=== PATIENT | female | born 1955 | race American Indian/Alaskan Native ===

== ENCOUNTER 2016-10-19 10:26 | Outpatient (CLI) | payer OTHER ==
--- NOTE | 2016-10-19 14:11 | Mammography Report ---
BILATERAL DIGITAL SCREENING MAMMOGRAM with CAD: 10/19/16 10:26:00 CLINICAL: Routine screening. COMPARISON:None available. She does not remember where she last had a mammogram. FINDINGS: The breasts are heterogeneously dense, which may obscure small masses. No mass, architectural distortion or suspicious calcifications. IMPRESSION: No mammographic evidence of malignancy. BI-RADS CATEGORY: 1 - - Negative RECOMMENDATION: Routine mammographic screening in one year. COMMENT: Patient follow-up letters are generated by our [employer] application.
== END 2016-10-19 10:27 | disposition home or self-care (01) ==
LOC: SPVWC 10:26
PROVIDERS: ATTEND Family Medicine
DX: Z12.31 Encounter for screening mammogram for malignant neoplasm of breast (principal)
CPT/HCPCS: 77067; G0202

== ENCOUNTER 2017-03-20 12:30 | Inpatient (IN) | payer OTHER ==
--- NOTE | 2017-03-20 13:39 | Emergency Department Report ---
Chief Complaint: Dyspnea/Respdistress Stated Complaint: SHORTNESS OF BREATH Time Seen by Provider: 03/20/17 13:35 - HPI History of Present Illness: pt is a 61 y/o aaf pt for Pulmonology Dr. Daley with hx of sarcoidosis on flovent, and albuterol, rx home O2, not currently taking flovent or home O2 as "I haven't picked it up yet" pt presents for increased sob with dizziness unable to tolerate ADLS for past 3 days however she drove self to ed but does endorse having to stop 3 times between parking lot and registration to catch her breath. - Exam Vital Signs: Vital Signs 03/20/17 13:03 Temperature 98.3 F Pulse Rate 105 H Respiratory 22 Rate Blood Pressure 171/129 O2 Sat by Pulse 93 Oximetry MSE screening note: Focused history and physical exam performed. Due to findings the following was ordered: ED Disposition for MSE Condition: Stable
--- NOTE | 2017-03-20 14:45 | XRay Report ---
PA and lateral chest: SOB. The lungs are hyperinflated. There is a markedly thickened interstitial pulmonary pattern involving predominantly the upper lobes bilaterally. Several focal opacities are present just lateral to the right hilum. The heart is normal in size and there is no overt vascular congestion. No obvious hilar or mediastinal adenopathy identified. No prior study for comparison. Impression: Chronic lung disease with probable upper lobe fibrosis. Significant masses adjacent to the right hilum cannot be excluded. Recommendation: If prior exams are not available for comparison a CT scan is recommended.
--- NOTE | 2017-03-20 18:01 | Emergency Department Report ---
ED General Adult HPI - General Chief complaint: Dyspnea/Respdistress Stated complaint: SHORTNESS OF BREATH Time Seen by Provider: 03/20/17 13:35 Source: patient Mode of arrival: Ambulatory Limitations: No Limitations - History of Present Illness Initial comments: Pt is a 61 yo female here for bilateral lower ext edema. pt states she was sent by Dr Daley after a routine office visit today. Pt states that she was sent here for leg swelling. Pt states she just finished a 2 week prednisone taper. Pt states she has chronic sob and a history of sarcoid . Pt states she has not had chest pain . Pt denied any recent travel, prior history of PE/DVT. Review of the documents sent by Dr Zhang requested that the pt be admitted to the hospitalist service after having had a Ct Pe and doppler studies, along with some blood work. Severity scale (0 -10): 0 - Related Data Allergies Allergy/AdvReac Type Severity Reaction Status Date / Time No Known Allergies Allergy Unverified 03/20/17 13:03 ED Review of Systems ROS: Stated complaint: SHORTNESS OF BREATH Other details as noted in HPI ED Past Medical Hx - Past Medical History Previous Medical History?: Yes Hx Hypertension: Yes Additional medical history: Sarcadosis - Surgical History Past Surgical History?: Yes Additional Surgical History: C section - Social History Smoking Status: Never Smoker Substance Use Type: None ED Physical Exam - General Limitations: No Limitations General appearance: alert, in no apparent distress - Eye Eye exam: Present: normal appearance, PERRL, EOMI - ENT ENT exam: Present: mucous membranes moist - Neck Neck exam: Present: normal inspection - Cardiovascular Cardiovascular Exam: Present: regular rate - GI/Abdominal GI/Abdominal exam: Present: soft. Absent: distended, tenderness, guarding - Neurological Exam Neurological exam: Present: alert, oriented X3 - Psychiatric Psychiatric exam: Present: normal affect ED Course Vital Signs 03/20/17 03/20/17 03/20/17 13:03 17:29 18:35 Temperature 98.3 F Pulse Rate 105 H 87 Respiratory 22 18 Rate Blood Pressure 171/129 Blood Pressure 182/113 [Left] O2 Sat by Pulse 93 98 96 Oximetry ED Medical Decision Making - Lab Data Result diagrams: 03/20/17 18:33 Critical care attestation.: If time is entered above; I have spent that time in minutes in the direct care of this critically ill patient, excluding procedure time. ED Disposition Clinical Impression: Leg edema, Dyspnea, unspecified, Sarcoid Disposition: [id number] OP ADMIT IP TO THIS HOSP Is pt being admited?: Yes Condition: Stable Referrals: PRIMARY CARE, [Primary Care Provider] - 3-5 Days Time of Disposition: 19:14
[2017-03-20 18:52] LABS: Basophils % (Auto) 1.7 % (0.0-1.8); Eosinophils % (Auto) 0.4 % (0.0-4.3); Hematocrit 47.1 % (30.3-42.9); Hemoglobin 14.9 gm/dl (10.1-14.3); Mean Corpuscular HGB Conc 32 % (30-34); Mean Corpuscular Volume 80 fl (79-97); Platelet Count 261 K/mm3 (140-440); Red Blood Count 5.89 M/mm3 (3.65-5.03); Red Cell Distribution Width 17.4 % (13.2-15.2); White Blood Count 6.2 K/mm3 (4.5-11.0)
[2017-03-20 18:57] LABS: Mean Corpuscular Hemoglobin 25 pg (28-32)
[2017-03-20 19:22] LABS: Alanine Aminotransferase 34 units/L (7-56); Albumin 3.9 g/dL (3.9-5); Albumin/Globulin Ratio 1.2 %; Alkaline Phosphatase 42 units/L (35-129); Anion Gap 17 mmol/L; BUN/Creatinine Ratio 28; Blood Urea Nitrogen 17 mg/dL (7-17); Calcium 9.3 mg/dL (8.4-10.2); Carbon Dioxide 28 mmol/L (22-30); Glucose 85 mg/dL (65-100); Potassium 3.3 mmol/L (3.6-5.0); Sodium 139 mmol/L (137-145); Total Protein 7.1 g/dL (6.3-8.2)
[2017-03-20] MEDS ORDERED: K-DUR PO ONE ×2 (21:26→22:22)
--- NOTE | 2017-03-20 21:27 | History and Physical Report ---
History of Present Illness Date of examination: 03/20/17 (Pt endorsed to me at 2100hrs) Chief complaint: Its hard to breathe, and my legs are swollen History of present illness: 61 YO Female with HTN, Sarcoidosis presents to ED for evaluation. Pt states that she has experienced shortness of breath and leg swelling for the past 2wks with worsening symptoms over the past 2 days. Pt was seen by her senior storage administrator and treated with prednisone taper with no improvement in symptoms. Pt states that her leg swelling began after taking steroid taper. Pt was sent to ED for evaluation at the request of her senior storage administrator. Pt denies fever, chills, CP, Palpitations, NVD, Syncope, hemoptysis, BRBPR, Trauma, Skin rash, Productive cough, or recent ill contacts. Pt seen and evaluated in ED and found to be in respiratory distress with oxygen saturation of 86%, and also found to have an elevated D dimer. Pt subsequently underwent CT Angio chest which revealed a Pulmonary Embolus. Pt treated with supplemental oxygen, and therapeutic anticoagulation. Past History Past Medical History: hypertension, sarcoidosis Past Surgical History: Social history: single. denies: smoking, alcohol abuse, prescription drug abuse Family history: hypertension Medications and Allergies Allergies Allergy/AdvReac Type Severity Reaction Status Date / Time No Known Allergies Allergy Unverified 03/20/17 13:03 Home Medications Medication Instructions Recorded Confirmed Last Taken Type Losartan-Hctz 100-25 mg Tab 1 tab PO QAM 03/20/17 03/20/17 Unknown History Metoprolol 25 mg PO QPM 03/20/17 03/20/17 Unknown History Active Meds: Active Medications Albuterol/Ipratropium (Duoneb *Not For Prn Use*) 1 ampul IH TIDRT [facility] Review of Systems Constitutional: no weight loss, no weight gain, no fever, no chills Ears, nose, mouth and throat: no ear pain, no ear discharge, no tinnitis, no decreased hearing, no nose pain, no nasal congestion, no nasal discharge Breasts: no change in shape, no swelling, no mass Cardiovascular: shortness of breath, leg edema, no chest pain, no orthopnea, no palpitations, no edema, no syncope Respiratory: no cough, no cough with sputum, no excessive sputum, no hemoptysis Gastrointestinal: no abdominal pain, no nausea, no vomiting, no diarrhea, no constipation Genitourinary Female: no pelvic pain, no flank pain, no menorrhagia, no dysuria , no urinary frequency, no urgency Rectal: no pain, no incontinence, no bleeding Musculoskeletal: no neck stiffness, no neck pain, no shooting arm pain, no arm numbness/tingling, no low back pain Integumentary: no rash, no pruritis, no redness, no sores, no wounds, no jaundice Neurological: no transient paralysis, no paralysis, no weakness, no parathesias , no numbness, no tingling, no seizures Psychiatric: no anxiety, no memory loss, no change in sleep habits, no sleep disturbances, no insomnia, no hypersomnia, no change in appetite Endocrine: no cold intolerance, no heat intolerance, no polyphagia, no excessive thirst, no polydipsia, no polyuria, no nocturia Hematologic/Lymphatic: no easy bruising, no easy bleeding Allergic/Immunologic: no urticaria, no allergic rhinitis, no wheezing Exam - Constitutional Vitals: Temp Pulse Resp BP Pulse Ox 98.3 F 87 18 182/113 96 03/20/17 13:03 03/20/17 17:29 03/20/17 17:29 03/20/17 17:29 03/20/17 18:35 General appearance: Present: mild distress, cachectic - EENT Eyes: Present: PERRL ENT: hearing intact, clear oral mucosa - Neck Neck: Present: supple, normal ROM - Respiratory Respiratory effort: normal Respiratory: bilateral: diminished - Cardiovascular Heart Sounds: Present: S1 & S2. Absent: rub, click - Extremities Extremities: pulses symmetrical, No edema Extremity abnormal: edema Peripheral Pulses: within normal limits - Abdominal General gastrointestinal: Present: soft, non-tender, non-distended, normal bowel sounds Female genitourinary: Present: normal - Integumentary Integumentary: Present: clear, warm, dry - Musculoskeletal Musculoskeletal: gait normal, strength equal bilaterally - Psychiatric Psychiatric: appropriate mood/affect, intact judgment & insight, cooperative, agitated - Neurologic Neurologic: CNII-XII intact, moves all extremities Results - Labs CBC & Chem 7: 03/20/17 18:33 03/20/17 18:34 Labs: Abnormal lab results 03/20/17 03/20/17 03/20/17 Range/Units 18:33 18:34 18:35 RBC 5.89 H (3.65-5.03) M/mm3 Hgb 14.9 H (10.1-14.3) gm/dl Hct 47.1 H (30.3-42.9) % MCH 25 L (28-32) pg RDW 17.4 H (13.2-15.2) % [place] % (Auto) 11.9 H (0.0-7.3) % D-Dimer 237.70 H (0-234) ng/mlDDU Potassium 3.3 L (3.6-5.0) mmol/L Chloride 97.0 L (98-107) mmol/L Creatinine 0.6 L (0.7-1.2) mg/dL Total Bilirubin 1.30 H (0.1-1.2) mg/dL Assessment and Plan - Patient Problems (1) Acute respiratory failure Current Visit: Yes Status: Acute Qualifiers: Respiratory failure complication: hypoxia Qualified Code(s): J96.01 - Acute respiratory failure with hypoxia Plan to address problem: Supplemental oxygen, nebulizer therapy, NIPPV as clinically indicated, incentive spirometry, supportive care, diuresis. (2) Accelerated hypertension Current Visit: Yes Status: Acute Plan to address problem: Monitor bp q shift, hydralazine prn, (3) Pulmonary embolism Current Visit: Yes Status: Acute Qualifiers: Chronicity: acute Acute cor pulmonale presence: without acute cor pulmonale Plan to address problem: therapeutic anticoagulation, (4) CHF (congestive heart failure) Current Visit: Yes Status: Suspected Qualifiers: Congestive heart failure type: systolic Congestive heart failure chronicity : acute Qualified Code(s): I50.21 - Acute systolic (congestive) heart failure Plan to address problem: Suspected New Onset CHF: Thyroid panel, BNP, Echo, fluid restriction, monitor uop q shift to ensure negative fluid balance, afterload reduction, (5) Sarcoid Current Visit: Yes Status: Acute Plan to address problem: Pain control, supportive care, steroid therapy (6) DVT prophylaxis Current Visit: Yes Status: Acute
[2017-03-20] MEDS ORDERED: PROVENTIL IH PRN (21:29)
[2017-03-20] MEDS ORDERED: ZOFRAN IV PRN (21:29)
[2017-03-20] MEDS ORDERED: TYLENOL PO PRN (21:29)
[2017-03-20] MEDS ORDERED: APRESOLINE IV PRN (21:32)
[2017-03-20] MEDS ORDERED: APRESOLINE ONE (22:54)
[2017-03-21] MEDS ORDERED: ATIVAN PO PRN (00:31)
[2017-03-21] MEDS ORDERED: ELIQUIS PO SCH (01:00)
[2017-03-21] MEDS: DUONEB *Not for PRN Use IH SCH ×5 (04:37→19:18)
[2017-03-21] MEDS: LASIX IV SCH ×2 (05:16→18:06)
[2017-03-21] MEDS ORDERED: PROVENTIL IH PRN (08:03)
[2017-03-21 08:10] LABS: ISTAT Base Excess 5; ISTAT DEVICE 0; ISTAT PCO2 40.2 (35-45); ISTAT PH 7.466 (7.35-7.45); ISTAT PO2 55 (80-105); ISTAT SO2 90; ISTAT TCO2 30
[2017-03-21] MEDS: HCTZ PO SCH (09:07)
[2017-03-21] MEDS: COZAAR PO SCH (09:07)
[2017-03-21] MEDS ORDERED: LOSARTAN HCTZ PO SCH (10:00)
--- NOTE | 2017-03-21 10:05 | Progress Note ---
Assessment and Plan Assessment and plan: --Acute respiratory failure: secondary to pulmonary embolism, chronic lung disease She contacted her O2 sats to more than 90%, BiPAP as needed, anticoagulation with Eliquis, pulmonary following --Acute pulmonary embolism; continue Eliquis, supportive care, lower extremity venous Doppler negative --Accelerated hypertension; moderate control, continue current antihypertensives and when necessary medications --Congestive heart failure/diastolic dysfunction; continue diuretics, echo ejection fraction 50-55% --Cor pulmonale; restrict fluid intake, IV diuretics, pulmonary following --History of sarcoidosis; continue current management --DVT prophylaxis; patient is already on Eliquis History Interval history: Patient seen and examined medical records reviewed No new events reported Admitted with acute respiratory failure and pulmonary embolism Hospitalist Physical - Constitutional Vitals: Temp Pulse Resp BP Pulse Ox 98.4 F 91 H 16 133/92 100 03/21/17 08:12 03/21/17 09:07 03/21/17 08:12 03/21/17 09:07 03/21/17 08:12 General appearance: Present: no acute distress, cachectic - EENT Eyes: Present: PERRL, EOM intact - Neck Neck: Present: supple, normal ROM - Respiratory Respiratory effort: normal Respiratory: bilateral: diminished, rhonchi, negative: rales, wheezing - Cardiovascular Rhythm: regular Heart Sounds: Present: S1 & S2 - Extremities Extremities: no ischemia, pulses intact Peripheral Pulses: within normal limits - Abdominal General gastrointestinal: soft, non-tender, non-distended - Integumentary Integumentary: Present: clear, warm - Psychiatric Psychiatric: appropriate mood/affect, cooperative - Neurologic Neurologic: CNII-XII intact, moves all extremities Results - Labs CBC & Chem 7: 03/22/17 05:19 03/22/17 05:19 Labs: Laboratory Last Values WBC 6.2 K/mm3 (4.5-11.0) 03/20/17 18:33 RBC 5.89 M/mm3 (3.65-5.03) H 03/20/17 18:33 Hgb 14.9 gm/dl (10.1-14.3) H 03/20/17 18:33 Hct 47.1 % (30.3-42.9) H 03/20/17 18:33 MCV 80 fl (79-97) 03/20/17 18:33 MCH 25 pg (28-32) L 03/20/17 18:33 MCHC 32 % (30-34) 03/20/17 18:33 RDW 17.4 % (13.2-15.2) H 03/20/17 18:33 Plt Count 261 K/mm3 (140-440) 03/20/17 18:33 Lymph % (Auto) 25.7 % (13.4-35.0) 03/20/17 18:33 [place] % (Auto) 11.9 % (0.0-7.3) H 03/20/17 18:33 Eos % (Auto) 0.4 % (0.0-4.3) 03/20/17 18:33 Baso % (Auto) 1.7 % (0.0-1.8) 03/20/17 18:33 Lymph # 1.6 K/mm3 (1.2-5.4) 03/20/17 18:33 [place] # 0.7 K/mm3 (0.0-0.8) 03/20/17 18:33 Eos # 0.0 K/mm3 (0.0-0.4) 03/20/17 18:33 Baso # 0.1 K/mm3 (0.0-0.1) 03/20/17 18:33 Seg Neutrophils % 60.3 % (40.0-70.0) 03/20/17 18:33 Seg Neutrophils # 3.7 K/mm3 (1.8-7.7) 03/20/17 18:33 D-Dimer 237.70 ng/mlDDU (0-234) H 03/20/17 18:35 POC ABG pH 7.466 (7.35-7.45) H 03/21/17 07:54 POC ABG pCO2 40.2 (35-45) 03/21/17 07:54 POC ABG pO2 55 (80-105) L 03/21/17 07:54 POC ABG HCO3 29.0 03/21/17 07:54 POC ABG Total CO2 30 03/21/17 07:54 POC ABG O2 Sat 90 03/21/17 07:54 POC ABG Base Excess 5 03/21/17 07:54 FiO2 21 % 03/21/17 07:54 Sodium 139 mmol/L (137-145) 03/20/17 18:34 Potassium 3.3 mmol/L (3.6-5.0) L 03/20/17 18:34 Chloride 97.0 mmol/L (98-107) L 03/20/17 18:34 Carbon Dioxide 28 mmol/L (22-30) 03/20/17 18:34 Anion Gap 17 mmol/L 03/20/17 18:34 BUN 17 mg/dL (7-17) 03/20/17 18:34 Creatinine 0.6 mg/dL (0.7-1.2) L 03/20/17 18:34 Estimated GFR > 60 ml/min 03/20/17 18:34 BUN/Creatinine Ratio 28 % 03/20/17 18:34 Glucose 85 mg/dL (65-100) 03/20/17 18:34 Calcium 9.3 mg/dL (8.4-10.2) 03/20/17 18:34 Total Bilirubin 1.30 mg/dL (0.1-1.2) H 03/20/17 18:34 AST 31 units/L (5-40) 03/20/17 18:34 ALT 34 units/L (7-56) 03/20/17 18:34 Alkaline Phosphatase 42 units/L (35-129) 03/20/17 18:34 Troponin T < 0.010 ng/mL (0.00-0.029) 03/20/17 18:34 NT-Pro-B Natriuret Pep 1818 pg/mL (0-900) H 03/20/17 18:34 Total Protein 7.1 g/dL (6.3-8.2) 03/20/17 18:34 Albumin 3.9 g/dL (3.9-5) 03/20/17 18:34 Albumin/Globulin Ratio 1.2 % 03/20/17 18:34 TSH 0.334 mlU/mL (0.270-4.200) 03/21/17 06:11 Free T4 1.61 ng/dL (0.76-1.46) H 03/21/17 06:11
--- NOTE | 2017-03-21 14:35 | Event Note ---
Date: 03/21/17 PULMONARY CONSULTATION: DR. Woods thank you for asking us to participate in the care of this patient. This is 61 year old female. Came to my office with shortness of breath. I ordered ANGIO CT of chest, Patient unable to get it for insurance reasons Patient came back to the office again with shortness of breath. I send her to the emergency room to get Angio CT. Iwas told Surekha CT of chest positive for Pulmonary emboli. Official report still pending. Patient started on eliquis by the hospitalist. Patient also arranged home Oxygen. Patient said she is unable to get it because of insurance reasons. Patient ABGs done in the emergency room showed PO2 55 on room air.Patient is candidate for home O2. Recommend home O2 2 litres via nasal canula.Patient has history of sarcoidosis. Obtaining NELLIE Level. Patient also has history of hypertension.No history of smoking, alcohol or drug abuse.Patient has no known drug allergies.Patients HGB and HCT slightly high likely secondary to hypoxemia and likely secondary polycythemia. Impression: 1. Acute hypoxic respiratory failure. 2. Pulmonary embolism 3. H/O sarcoidosis. 4. Hypertension. 5. Secondary polycythemia 6. Hypokalemia. PLAN: 1. O2 supplementation 2 litres via nasal canula. 2. Patient placed on Apixaban. 3. NELLIE level. 4. Protein S,Protein C and antithrombin level. 5. Continue albuterol/atrovent aerosol treatments. 6. Continue I/V solumedral. 7. Supplemented KCL. 8. Patient is candidate for Home O2.Recommend home O2 2 litres via nasal canula.
[2017-03-21] MEDS ORDERED: NON-FORMULARY (Metoprolol 25 MG) PO SCH (18:00)
[2017-03-21] MEDS: LOPRESSOR PO SCH (18:04)
[2017-03-21] MEDS: ELIQUIS PO SCH (18:05)
--- NOTE | 2017-03-21 22:22 | Cat Scan Report ---
FINAL REPORT PROCEDURE: CT ANGIO CHEST TECHNIQUE: Computerized tomographic angiography of the chest was performed after the IV injection of iodinated nonionic contrast including image processing. The image data was postprocessed using 2-dimensional multiplanar reformatted (MPR) and 3-dimensional (MIP and/or volume rendered) techniques. HISTORY: possible PE; history of sarcoid COMPARISON: No prior studies are available for comparison. FINDINGS: Heart and pericardium: There is a pericardial effusion, measuring 12 millimeters in thickness. Thoracic aorta: No aneurysm or dissection is seen. Pulmonary vasculature: Within a proximal right upper lobe pulmonary arterial branch, there is a filling defect, which is compatible with a pulmonary embolus, of uncertain chronicity. This may be chronic. Findings favored less likely to be related to extrinsic compression from adjacent adenopathy. Lymph nodes: There is predominately posterior mediastinal adenopathy, measuring up to 11 millimeters short axis. Smaller nodes are seen within bilateral jeb. Lungs: There is extensive bilateral upper lobe scarring. There is a nodule in the right lung apex, with spiculated borders, measuring up to 15 millimeters. Pleural space: No effusion, thickening, or pneumothorax. Musculoskeletal structures: No significant abnormality. Upper abdominal structures: No significant abnormality. IMPRESSION: Right upper lobe pulmonary arterial filling defect is compatible with a pulmonary embolus, of uncertain chronicity. This is favored less likely to be related to extrinsic compression by adjacent adenopathy. Extensive bilateral predominantly upper lung scarring. 15 millimeter right upper lobe nodule. Mediastinal adenopathy Findings were discussed with ERNESTO Pennington by telephone at 10:21 p.m. central standard time on 03/20/2017
[2017-03-22 05:40] LABS: Basophils % (Auto) 0.1 % (0.0-1.8); Hematocrit 41.8 % (30.3-42.9); Hemoglobin 13.5 gm/dl (10.1-14.3); Mean Corpuscular HGB Conc 32 % (30-34); Mean Corpuscular Volume 80 fl (79-97); Platelet Count 257 K/mm3 (140-440); Red Blood Count 5.25 M/mm3 (3.65-5.03); Red Cell Distribution Width 17.1 % (13.2-15.2); White Blood Count 6.1 K/mm3 (4.5-11.0)
[2017-03-22 05:44] LABS: Mean Corpuscular Hemoglobin 26 pg (28-32)
[2017-03-22 06:02] LABS: Anion Gap 15 mmol/L; BUN/Creatinine Ratio 30; Blood Urea Nitrogen 18 mg/dL (7-17); Calcium 8.8 mg/dL (8.4-10.2); Carbon Dioxide 31 mmol/L (22-30); Chloride 99.2 mmol/L (98-107); Glucose 125 mg/dL (65-100); Potassium 3.9 mmol/L (3.6-5.0); Sodium 141 mmol/L (137-145)
[2017-03-22] MEDS: LASIX IV SCH ×2 (06:44→20:24)
[2017-03-22] MEDS: ELIQUIS PO SCH ×2 (06:44→20:24)
[2017-03-22] MEDS: DUONEB *Not for PRN Use IH SCH ×3 (07:51→20:47)
--- NOTE | 2017-03-22 08:39 | Progress Note ---
Assessment and Plan Assessment and plan: --Acute respiratory failure: secondary to pulmonary embolism, chronic lung disease, symptoms improved She contacted her O2 sats to more than 90%, BiPAP as needed, anticoagulation with Eliquis, pulmonary following --Acute pulmonary embolism; continue Eliquis, supportive care, lower extremity venous Doppler negative --Accelerated hypertension; moderate control, continue current antihypertensives and when necessary medications --Congestive heart failure/diastolic dysfunction; continue diuretics, echo ejection fraction 50-55% --Cor pulmonale; restrict fluid intake, IV diuretics, pulmonary following --History of sarcoidosis; continue current management --DVT prophylaxis; patient is already on Eliquis Home oxygen evaluation per case management Possible discharge home tomorrow if stable Plan of care is reviewed with the patient, verbalize understanding History Interval history: patient seen and examined this morning Records reviewed Feels better no new complaints Alert awake oriented 3, vital signs reviewed Hospitalist Physical - Constitutional Vitals: Temp Pulse Resp BP Pulse Ox 97.8 F 69 18 106/70 98 03/22/17 08:13 03/22/17 08:13 03/22/17 08:13 03/22/17 08:13 03/22/17 08:13 General appearance: Present: no acute distress, cachectic - EENT Eyes: Present: PERRL, EOM intact - Neck Neck: Present: supple, normal ROM - Respiratory Respiratory effort: normal Respiratory: negative: rales, rhonchi, wheezing - Cardiovascular Rhythm: regular Heart Sounds: Present: S1 & S2 - Extremities Extremities: no ischemia Extremity abnormal: edema - Abdominal General gastrointestinal: soft, non-tender, non-distended, normal bowel sounds - Integumentary Integumentary: Present: clear, warm - Psychiatric Psychiatric: appropriate mood/affect, cooperative - Neurologic Neurologic: CNII-XII intact, moves all extremities Results - Labs CBC & Chem 7: 03/22/17 05:19 03/22/17 05:19 Labs: Laboratory Last Values WBC 6.1 K/mm3 (4.5-11.0) 03/22/17 05:19 RBC 5.25 M/mm3 (3.65-5.03) H 03/22/17 05:19 Hgb 13.5 gm/dl (10.1-14.3) 03/22/17 05:19 Hct 41.8 % (30.3-42.9) 03/22/17 05:19 MCV 80 fl (79-97) 03/22/17 05:19 MCH 26 pg (28-32) L 03/22/17 05:19 MCHC 32 % (30-34) 03/22/17 05:19 RDW 17.1 % (13.2-15.2) H 03/22/17 05:19 Plt Count 257 K/mm3 (140-440) 03/22/17 05:19 Lymph % (Auto) 7.8 % (13.4-35.0) L 03/22/17 05:19 [place] % (Auto) 4.6 % (0.0-7.3) 03/22/17 05:19 Eos % (Auto) 0.0 % (0.0-4.3) 03/22/17 05:19 Baso % (Auto) 0.1 % (0.0-1.8) 03/22/17 05:19 Lymph # 0.5 K/mm3 (1.2-5.4) L 03/22/17 05:19 [place] # 0.3 K/mm3 (0.0-0.8) 03/22/17 05:19 Eos # 0.0 K/mm3 (0.0-0.4) 03/22/17 05:19 Baso # 0.0 K/mm3 (0.0-0.1) 03/22/17 05:19 Seg Neutrophils % 87.5 % (40.0-70.0) H 03/22/17 05:19 Seg Neutrophils # 5.3 K/mm3 (1.8-7.7) 03/22/17 05:19 D-Dimer 237.70 ng/mlDDU (0-234) H 03/20/17 18:35 POC ABG pH 7.466 (7.35-7.45) H 03/21/17 07:54 POC ABG pCO2 40.2 (35-45) 03/21/17 07:54 POC ABG pO2 55 (80-105) L 03/21/17 07:54 POC ABG HCO3 29.0 03/21/17 07:54 POC ABG Total CO2 30 03/21/17 07:54 POC ABG O2 Sat 90 03/21/17 07:54 POC ABG Base Excess 5 03/21/17 07:54 FiO2 21 % 03/21/17 07:54 Sodium 141 mmol/L (137-145) 03/22/17 05:19 Potassium 3.9 mmol/L (3.6-5.0) 03/22/17 05:19 Chloride 99.2 mmol/L (98-107) 03/22/17 05:19 Carbon Dioxide 31 mmol/L (22-30) H 03/22/17 05:19 Anion Gap 15 mmol/L 03/22/17 05:19 BUN 18 mg/dL (7-17) H 03/22/17 05:19 Creatinine 0.6 mg/dL (0.7-1.2) L 03/22/17 05:19 Estimated GFR > 60 ml/min 03/22/17 05:19 BUN/Creatinine Ratio 30 % 03/22/17 05:19 Glucose 125 mg/dL (65-100) H 03/22/17 05:19 Calcium 8.8 mg/dL (8.4-10.2) 03/22/17 05:19 Total Bilirubin 1.30 mg/dL (0.1-1.2) H 03/20/17 18:34 AST 31 units/L (5-40) 03/20/17 18:34 ALT 34 units/L (7-56) 03/20/17 18:34 Alkaline Phosphatase 42 units/L (35-129) 03/20/17 18:34 Troponin T < 0.010 ng/mL (0.00-0.029) 03/20/17 18:34 NT-Pro-B Natriuret Pep 1818 pg/mL (0-900) H 03/20/17 18:34 Total Protein 7.1 g/dL (6.3-8.2) 03/20/17 18:34 Albumin 3.9 g/dL (3.9-5) 03/20/17 18:34 Albumin/Globulin Ratio 1.2 % 03/20/17 18:34 TSH 0.334 mlU/mL (0.270-4.200) 03/21/17 06:11 Free T4 1.61 ng/dL (0.76-1.46) H 03/21/17 06:11
[2017-03-22] MEDS: HCTZ PO SCH (10:11)
[2017-03-22] MEDS: COZAAR PO SCH (10:11)
--- NOTE | 2017-03-22 16:52 | Vascular Lab Report ---
LOWER EXTREMITY VENOUS DUPLEX: REASON FOR EXAM: Edema of the lower extremities. COMMENTS ON THE RIGHT: All veins visualized are freely compressible without evidence of internal echogenicity. Flow is spontaneous and phasic throughout. COMMENTS ON THE LEFT: All veins visualized are freely compressible without evidence of internal echogenicity. Flow is spontaneous and phasic throughout. IMPRESSION: No evidence of acute or chronic deep venous thrombosis in either lower extremity.
--- NOTE | 2017-03-22 17:27 | Progress Note ---
Assessment and Plan Acute Hypoxemic respiratory failure Acute pulmonary embolism Accelerated hypertension Congestive heart failure/diastolic dysfunction Cor pulmonale History of sarcoidosis - contin ue anticoagulation with DOAC (Eliquis) - continue supplemental oxygen to keep sats > 89% - continue gentle diuresis re: CMOP/Cor Pulmonale - home oxygen evaluation at discharge - GI prophylaxis appropriate on full anticoagulation - continue other care per attending ...re-evaluate in am & prn Subjective Date of service: 03/22/17 Principal diagnosis: Acute Pulmonary Embolism; Acute Hypoxemic Respiratory Failure Interval history: Patient is Seen today for: Acute Pulmonary Embolism; Acute Hypoxemic Respiratory Failure Seen and examined at bedside; 24 hour events reviewed; nursing and respiratory care staff consulted; resting peacefully; tolerating full anticoagulation; denies acute chest pains or increased SOB; No emesis or overt aspiration; No hematuria, hemoptysis, hematemesis or other bleeding Objective Vital Signs - 12hr 03/22/17 03/22/17 03/22/17 07:52 08:07 08:13 Temperature 97.8 F Pulse Rate 69 Pulse Rate [ 96 H 98 H Anterior Bilateral Throughout] Respiratory 18 Rate Respiratory 16 16 Rate [Anterior Bilateral Throughout] Blood Pressure Blood Pressure 106/70 [Left] O2 Sat by Pulse 98 Oximetry 03/22/17 03/22/17 03/22/17 08:46 12:45 14:15 Temperature 99.4 F Pulse Rate 84 Pulse Rate [ 84 Anterior Bilateral Throughout] Respiratory 16 Rate Respiratory 16 Rate [Anterior Bilateral Throughout] Blood Pressure 116/87 Blood Pressure [Left] O2 Sat by Pulse 98 95 Oximetry 03/22/17 03/22/17 14:30 14:47 Temperature 98.4 F Pulse Rate 87 Pulse Rate [ 88 Anterior Bilateral Throughout] Respiratory 16 Rate Respiratory 16 Rate [Anterior Bilateral Throughout] Blood Pressure 96/63 Blood Pressure [Left] O2 Sat by Pulse 95 Oximetry Constitutional: no acute distress, alert Eyes: non-icteric ENT: oropharynx moist Neck: supple, no lymphadenopathy, no JVD Effort: normal Ascultation: Bilateral: clear Percussion: Bilateral: not dull Cardiovascular: regular rate and rhythm, other (no rubs or murmurs) Gastrointestinal: normoactive bowel sounds, soft, non-tender, non-distended, other (No HSM) Integumentary: normal Extremities: no cyanosis, no edema, pulses normal, no ischemia or petechiae Neurologic: normal mental status, non-focal exam, pupils equal and round, motor strength normal and Psychiatric: mood appropriate, affect normal CBC and BMP: 03/22/17 05:19 03/22/17 05:19 ABG, PT/INR, D-dimer: ABG POC ABG pH 7.466 (7.35-7.45) H 03/21/17 07:54 POC ABG pCO2 40.2 (35-45) 03/21/17 07:54 POC ABG pO2 55 (80-105) L 03/21/17 07:54 POC ABG HCO3 29.0 03/21/17 07:54 POC ABG Total CO2 30 03/21/17 07:54 POC ABG O2 Sat 90 03/21/17 07:54 PT/INR, D-dimer D-Dimer 237.70 ng/mlDDU (0-234) H 03/20/17 18:35 Abnormal lab findings: Abnormal Labs 03/20/17 03/20/17 03/20/17 18:33 18:34 18:34 RBC 5.89 H Hgb 14.9 H Hct 47.1 H MCH 25 L RDW 17.4 H Lymph % (Auto) [place] % (Auto) 11.9 H Lymph # Seg Neutrophils % D-Dimer POC ABG pH POC ABG pO2 Potassium 3.3 L Chloride 97.0 L Carbon Dioxide BUN Creatinine 0.6 L Glucose Total Bilirubin 1.30 H NT-Pro-B Natriuret Pep 1818 H Free T4 03/20/17 03/21/17 03/21/17 18:35 06:11 07:54 RBC Hgb Hct MCH RDW Lymph % (Auto) [place] % (Auto) Lymph # Seg Neutrophils % D-Dimer 237.70 H POC ABG pH 7.466 H POC ABG pO2 55 L Potassium Chloride Carbon Dioxide BUN Creatinine Glucose Total Bilirubin NT-Pro-B Natriuret Pep Free T4 1.61 H 03/22/17 03/22/17 05:19 05:19 RBC 5.25 H Hgb Hct MCH 26 L RDW 17.1 H Lymph % (Auto) 7.8 L [place] % (Auto) Lymph # 0.5 L Seg Neutrophils % 87.5 H D-Dimer POC ABG pH POC ABG pO2 Potassium Chloride Carbon Dioxide 31 H BUN 18 H Creatinine 0.6 L Glucose 125 H Total Bilirubin NT-Pro-B Natriuret Pep Free T4 Chest x-ray: image reviewed
[2017-03-22] MEDS: LOPRESSOR PO SCH (20:24)
[2017-03-23] MEDS: ELIQUIS PO SCH (06:00)
[2017-03-23] MEDS: LASIX IV SCH (06:00)
[2017-03-23] MEDS: DUONEB *Not for PRN Use IH SCH ×2 (07:54→17:21)
[2017-03-23 08:09] VITALS: BP 114/81
--- NOTE | 2017-03-23 08:17 | Discharge Summary ---
Providers - Providers Date of Admission: 03/20/17 21:29 Date of discharge: 03/23/17 Attending physician: LINDA SOL 03/20/17 21:32 Consult to Physician [CONS] Routine Consulting Provider: CHRIS FISHER Reason For Exam: resp failure Place consult to:: DR. HOLBROOK Notified:: OFFICE Phone number called:: [phone] Was contact made?: Yes If yes, spoke with:: SHERYL Time called:: 09:21 Comment:: FIORDALIZA NOTIFIED Primary care physician: CHIO BISWAS Hospitalization Reason for admission: worsening shortness of breath and worsening leg edema Condition: Stable Pertinent studies: Chest x-ray ; chronic lung disease, upper lobe fibrosis Extremity venous Doppler; negative for DVT CT angiogram of the chest; right upper lobe pulmonary embolism, at upper lobe nodule, interstitial lung disease, mediastinal adenitis[patient follows with pulmonary] Echocardiogram ;Severe cor pulmonale, ejection fraction 50-55% Hospital course: 61-year-old -[place] female patient with multiple medical problems was admitted through emergency room with worsening shortness of breath worsening leg edema Patient was extensively evaluated and admitted to the hospital, evaluation was consistent with a right PE Started on anticoagulation with eliquis, evaluated by pulmonology and l tacker Patient was symptomatically managed Symptoms significantly improved Evaluated for home oxygen, however patient's saturation was above 93-94 resting and ambulation, no indication for home oxygen at this point Today she is comfortable no new complaints Vital signs stable Physical examination prior to discharge is unremarkable Cleared by pulmonary and hematology, follow up with them in the office upon discharge Patient is hemodynamically and clinically stable at the time of discharge Discharge diagnosis: --Acute respiratory failure: --Acute pulmonary embolism; --Accelerated hypertension; controlled --Congestive heart failure/diastolic dysfunction; --Severe Cor pulmonale; --History of sarcoidosis; Disposition: DC-01 TO HOME OR SELFCARE Time spent for discharge: 32 min Core Measure Documentation - Palliative Care Palliative Care/ Comfort Measures: Not Applicable - Core Measures Any of the following diagnoses?: none - VTE Discharge Requirements Deep Vein Thrombosis/Pulmonary Embolism Present on Admission: Yes Has pt received <5 days of overlap therapy or INR<2.0: Yes Anticoagulant overlap therapy prescribed at discharge: No Contraindication No Overlap Therapy order at DC: Not Indicated (Patient is on Eliquis) Exam - Constitutional Vitals: Temp Pulse Resp BP Pulse Ox 98.0 F 71 20 114/81 99 03/23/17 07:10 03/23/17 07:10 03/23/17 07:10 03/23/17 07:10 03/23/17 07:10 General appearance: Present: no acute distress, well-nourished - EENT Eyes: Present: PERRL, EOM intact - Neck Neck: Present: supple, normal ROM - Respiratory Respiratory effort: normal Respiratory: bilateral: diminished, negative: rales, rhonchi, wheezing - Cardiovascular Rhythm: regular Heart Sounds: Present: S1 & S2 - Extremities Extremities: no ischemia Extremity abnormal: edema - Abdominal General gastrointestinal: Present: soft, non-tender, non-distended, normal bowel sounds - Integumentary Integumentary: Present: clear, warm - Musculoskeletal Musculoskeletal: strength equal bilaterally - Psychiatric Psychiatric: appropriate mood/affect, cooperative - Neurologic Neurologic: CNII-XII intact, moves all extremities Plan Activity: no restrictions Diet: low salt Additional Instructions: If You have Shortness of breath or chest pain, contact M.D. or go to ER Follow up with: PRIMARY CARE, [Referring] - 3-5 Days CHRIS FISHER MD [Staff Physician] - 7 Days YOEL DELANEY MD [Staff Physician] - 7 Days Prescriptions: Apixaban [Eliquis] 2 tab PO Q12H #20 tablet Apixaban [Eliquis] 5 mg PO BID #30 tablet Furosemide [Lasix] 20 mg PO DAILY #30 tablet Metoprolol 25 mg PO QPM #30 Prednisone [predniSONE 10 mg (6-Day Pack, 21 Tabs)] 10 mg PO .TAPER #1 tab.ds.pk
[2017-03-23] MEDS: HCTZ PO SCH (09:49)
[2017-03-23] MEDS: COZAAR PO SCH (09:49)
[2017-04-03 13:26] LABS: Protein S, Free 75 % normal (50-147); Protein S, Total 85 % (70-140)
== END 2017-03-23 14:05 | disposition home or self-care (01) | DRG 175 ==
LOC: ED 12:30 → 3A 21:29
PROVIDERS: ADMIT Internal Medicine; ATTEND Internal Medicine
PROC: 4A033R1 Measurement of Arterial Saturation, Peripheral, Percutaneous Approach (ICD-10-PCS; principal; 2017-03-21)
DX: I26.09 Other pulmonary embolism with acute cor pulmonale (principal); J96.01 Acute respiratory failure with hypoxia; I50.30 Unspecified diastolic (congestive) heart failure; D86.9 Sarcoidosis, unspecified; J84.10 Pulmonary fibrosis, unspecified; I88.9 Nonspecific lymphadenitis, unspecified; D75.1 Secondary polycythemia; E87.6 Hypokalemia; I11.0 Hypertensive heart disease with heart failure; Z82.49 Family history of ischemic heart disease and other diseases of the circulatory system
CPT/HCPCS: 36415; 36600; 71020; 71275; 80048; 80053; 82164; 82803; 83880; 84439; 84443; 84484; 85025; 85301; 85305; 85379; 93005; 93010; 93306; 93970; 94640; 94760; 96374; J0360; J1940; J2405; J2920; J2930; Q9967